=== PATIENT | male | born 1970 | race Hispanic/Latino ===

== ENCOUNTER 2019-01-04 06:23 | Inpatient (IN) | payer OTHER ==
[2019-01-04 06:28] VITALS: O2SAT 99
--- NOTE | 2019-01-04 06:42 | ED PDOC ---
Arrival/HPI - General Chief Complaint: Medical Clearance Time Seen by Provider: 01/04/19 06:32 Historian: Patient - History of Present Illness Narrative History of Present Illness (Text): 01/04/19 06:39 Patient to ED transfer from [facility] for psychiatric admission.Pt.with history of depression and suicidal ideation.Currently states that he feels fine.No somatic complaints.Patient was previously medically cleared. Past Medical History - Provider Review Nursing Documentation Reviewed: Yes - Infectious Disease Hx of Infectious Diseases: None - Cardiac Hx Cardiac Disorders: No - Pulmonary Hx Respiratory Disorders: No - Neurological Hx Neurological Disorder: No - HEENT Hx HEENT Disorder: No - Renal Hx Renal Disorder: No - Endocrine/Metabolic Hx Endocrine Disorders: No - Hematological/Oncological Hx Blood Disorders: No - Integumentary Hx Dermatological Disorder: No - Musculoskeletal/Rheumatological Hx Musculoskeletal Disorders: Yes Other/Comment: club foot - Gastrointestinal Hx Gastrointestinal Disorders: No - Genitourinary/Gynecological Hx Genitourinary Disorders: No - Psychiatric Hx Psychophysiologic Disorder: Yes Hx Depression: Yes Hx Substance Use: No - Surgical History Other/Comment: leg surgery - Anesthesia Hx Anesthesia: Yes Hx Anesthesia Reactions: No Family/Social History - Physician Review Nursing Documentation Reviewed: Yes Family/Social History: No Known Family HX Smoking Status: Never Smoked Hx Alcohol Use: No Hx Substance Use: No Review of Systems - Review of Systems Constitutional: Normal Eyes: Normal ENT: Normal Respiratory: Normal Cardiovascular: Normal Gastrointestinal: Normal Genitourinary Male: Normal Musculoskeletal: Normal Skin: Normal Neurological: Normal Endocrine: Normal Hemo/Lymphatic: Normal Psychiatric: Depression Physical Exam Vital Signs Temp Pulse Resp BP Pulse Ox 01/04/19 06:28 98.1 F 89 13 137/99 H 99 Temperature: Afebrile Blood Pressure: Normal Pulse: Regular Respiratory Rate: Normal Appearance: Positive for: Well-Appearing, Non-Toxic, Comfortable Pain Distress: None Mental Status: Positive for: Alert and Oriented X 3 - Systems Exam Head: Present: Atraumatic, Normocephalic Pupils: Present: PERRL Extroacular Muscles: Present: EOMI Conjunctiva: Present: Normal Mouth: Present: Moist Mucous Membranes Neck: Present: Normal Range of Motion Respiratory/Chest: Present: Clear to Auscultation, Good Air Exchange. No: Respiratory Distress, Accessory Muscle Use Cardiovascular: Present: Regular Rate and Rhythm, Normal S1, S2. No: Murmurs Abdomen: No: Tenderness, Distention, Peritoneal Signs Back: Present: Normal Inspection Upper Extremity: Present: Normal Inspection. No: Cyanosis, Edema Lower Extremity: Present: Normal Inspection. No: Edema Neurological: Present: GCS=15, CN II-XII Intact, Speech Normal, Motor Func Grossly Intact, Normal Sensory Function Skin: Present: Warm, Dry, Normal Color. No: Rashes Psychiatric: Present: Alert, Oriented x 3, Normal Insight, Normal Concentration Disposition/Present on Arrival - Present on Arrival Any Indicators Present on Arrival: No History of DVT/PE: No History of Uncontrolled Diabetes: No Urinary Catheter: No History of Decub. Ulcer: No History Surgical Site Infection Following: None - Disposition Have Diagnosis and Disposition been Completed?: Yes Diagnosis: Depression, Suicidal ideation Disposition: HOSPITALIZED Disposition Time: 06:43 Patient Plan: Admission Condition: STABLE
[2019-01-04] MEDS ORDERED: Alum-Mag Hydrox-Simethicone Susp (30 mL) PO PRN (08:28)
[2019-01-04] MEDS ORDERED: Magnesium Hydroxide Susp 30 ml UD PO PRN (08:28)
--- NOTE | 2019-01-04 10:52 | PCM.BM ---
<Lexx Rouse - Last Filed: 01/04/19 10:48> Treatment Plan Problems - Problems identified on initial assessmt Depression Date Initiated: 01/04/19 Time Initiated: 09:00 Assessment reference: NA Status: Active Priority: 1 Comment: suicidal ideation/hoplessness/helplessness Ineffective Coping skill Date Initiated: 01/04/19 Time Initiated: 08:00 Assessment reference: NA Status: Active Priority: 2 Comment: Inability to cope with living situation. Altered sleep pattern Date Initiated: 01/04/19 Time Initiated: 08:00 Assessment reference: NA Status: Active Priority: 3 Comment: Inabilty to sleep well at night time. Treatment assets and liabiliti Patient Assests: cooperative, insightful, ADL independent, negotiates basic needs Patient Liabilities: live alone, physical pain, financial problems, poor support system, medical problems - Milieu Protocol Maintain good personal hygiene: every shift Encourage regular showers, every shift Remind patient to perform daily oral care, every shift Assist patient to perform ADL's Conduct patient checks and document Observation sheet: Q15 minutes Maintain personal safety: every shift Educate patient to report safety concerns to staff, every shift Monitor environment for contraband/sharps Medication safety: Monitor for expected outcome, potential side effects: every shift, Assess barriers to learning: every shift, Assess readiness for medication education: every shift Discharge/Continuing Care - Education Needs Education Needs: Patient Medication, Patient Diagnosis/Disease Process, Patient Coping Skills, Patient Anger Management skills, Patient Placement options, Patient Community resources, Patient Activities of Daily Living, Patient Pain, Patient Nutrition, Patient Health Practices/Safety, Patient Personal Hygiene/Grooming, Patient Aftercare Safety Plan - Discharge Discharge Criteria: Tolerates medication w/o severe side effects, Free of Suicidal thoughts, Normal sleep pattern, Ability to care for self, Reduction of target symptoms <Melissa Mathews - Last Filed: 01/04/19 17:10> - Diagnosis (1) Depression Status: Acute Interventions: 01/04/19 17:10 Psychoeducation Psychopharmacology/adjustment of medications as needed/ monitoring possible side effects Evaluate pt on daily basis Compliance with medications and follow up appointments Suicide and homicide risk assessment and prevention Relapse prevention Reduction of symptoms Improve functional status Family involvement As outpatient: cognitive behavioral therapy <Marisa Cruz - Last Filed: 01/06/19 12:36> Family Contact Family involvement: Famliy/SO not involved
--- NOTE | 2019-01-04 17:10 | PCM.PSYCH ---
Initial Psychiatric Evaluation - Initial Psychiatric Evaluation Type of Admission: Voluntary Legal Status: Capacity Chief Complaint (in patient's own words): "[facility] SW said that I am the most nice depressed person, but my point it does not matter if I present well, I know that I am depressed and I have a lot of issues..." Patient's Reaction to Hospitalization: Patient was transferred from [facility] for evaluation of depressive symptoms and possible suicidal ideations. History of Present Illness and Precipitating Events: Shortly patient is a 48-year-old male self-reported history of de pression and anxiety for past 2 years, recent discharge from my [facility], h/o at least 2 suicidal attempts, patient was transferred from [facility], where he presented with depression, possible suicidal ideation. Patient was seen and examined today at the treatment team meeting, patient presented with good personal hygiene, good ADLs, discussed with treatment staff, transfer people are reviewed. 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 Patient reports his mother mother 2 years ago from a sudden heart attack and his father in 2016. Patient reports never suffering from depression until these past few years. Patient reports having an argument with his brother 3 months ago and haven't spoken to him since. Patient was making vague statements like "it becomes harder and harder to ask for help." Patient reports hx of suicidal ideation, no attempts, pt denied using drugs, denied smoking, denied alcohol consumption. Based on reports from [facility], patient was d/c from [facility] less than a week ago, prescription of Zoloft and Trazadone. which was not beneficial and "I had upset stomach", patient reports he was told by previous hospital that they did not have time to discuss all of issues, resulting in patient becoming upset. Patient reports he was told by the nurse at [facility] that he was "the most nice depressed person", pt said "it does not matter if I am smiling and sleep fine, I know that I am depressed". Patient reported that he had a panic attack last month. Patient denied being physically/sexually and emotionally abused. No manic symptoms elicited or reported. Patient currently homeless, patient has pension, patient agreed boarding home referral. Past psychiatric history: Patient reported to suicidal attempts, first on 2017 in which patient overdosed on pills and one month ago in which patient was going to jump in front of a train. Patient reports both incidents were "spontaneous." RECORD [facility] at [place] pt was d/c from the [facility] in [facility] pt verbalized thoughts of killing self with the plan to jump in front of the train. pt reported that he was d/c from psych unit in [facility] and he was not feeling well back then. pt has one Suicidal attempt summer 2017 by overdose on meds. 2years of depression which was getting worse for the past 1week in ED at [facility] pt said that he is "at the end of his rope", and "getting harder and harder to ask for help", pt was "considering" of harming self at the night of admission, but denied any intent. pt was diagnosed with MD opal heller, with no psychosis. pt was on Prozac, wellbutrin, zoloft. Labs reviewed. 01/03/19 K was 3.3 (L) range 3.5-5.1 CXR 01/03/19 no evidence of acute pulmonary disease. Home meds listed: bentyl 20mg po 4 times a dy oxycontin 40mg twice a day oxycodone 15mg q6hrs Patient reported that currently he is not taking any painkillers Family history: Patient denied Medical history: Chronic hip pain, patient had multiple surgeries for his keep because 1 of his leg was shorter than other Vital Signs Temp Pulse Resp BP Pulse Ox 01/04/19 16:00 90 131/69 01/04/19 08:00 16 01/04/19 06:28 98.1 F 89 13 137/99 H 99 The patient failed the outpatient lower level of care: Yes Current Medications: See HPI Present on Admission - Present on Admission Any Indicators Present on Admission: No History of DVT/PE: No History of Uncontrolled Diabetes: No Urinary Catheter: No Decubitus Ulcer Present: No Review of Systems - Review of Systems Systems not reviewed;Unavailable: Acuity of Condition - Constitutional Constitutional: As Per HPI - EENT Eyes: As Per HPI Ears: As Per HPI Nose/Mouth/Throat: As Per HPI - Cardiovascular Cardiovascular: As Per HPI - Respiratory Respiratory: As Per HPI - Gastrointestinal Gastrointestinal: As Per HPI - Genitourinary Genitourinary: As Per HPI - Reproductive: Male Reproductive:Male: As Per HPI - Musculoskeletal Musculoskeletal: As Per HPI - Integumentary Integumentary: As Per HPI - Neurological Neurological: As Per HPI - Psychiatric Psychiatric: As Per HPI - Endocrine Endocrine: As Per HPI - Hematologic/Lymphatic Hematologic: As Per HPI Past Patient History - Past Psychiatric History Previous Treatment History: Inpatient Prior Professional Help: See HPI Prior Psychiatric Treatment: See HPI At what hospital: See HPI Duration: See HPI Nature of Treatment: See HPI Explanation of prior treatment: See HPI - PSYCHIATRIC Hx Psychophysiologic Disorder: Yes Hx Depression: Yes Hx Substance Use: No - Infectious Disease Hx of Infectious Diseases: None - CARDIAC Hx Cardiac Disorders: No - PULMONARY Hx Respiratory Disorders: No - NEUROLOGICAL Hx Neurological Disorder: No - HEENT Hx HEENT Problems: No - RENAL Hx Chronic Kidney Disease: No - ENDOCRINE/METABOLIC Hx Endocrine Disorders: No - HEMATOLOGICAL/ONCOLOGICAL Hx Blood Disorders: No - INTEGUMENTARY Hx Dermatological Problems: No - MUSCULOSKELETAL/RHEUMATOLOGICAL Hx Musculoskeletal Disorders: Yes Other/Comment: club foot - GASTROINTESTINAL Hx Gastrointestinal Disorders: No - GENITOURINARY/GYNECOLOGICAL Hx Genitourinary Disorders: No - SURGICAL HISTORY Other/Comment: leg surgery - ANESTHESIA Hx Anesthesia: Yes Hx Anesthesia Reactions: No - Medical/Surgical History Reviewed & confirmed: by wv Meds Allergies/Adverse Reactions: Allergies Allergy/AdvReac Type Severity Reaction Status Date / Time No Known Allergies Allergy Verified 01/04/19 06:47 Mental Status Examination - Personal Presentation Personal Presentation: Looks stated age - Affect Affect: Constricted (But reactive and mood congruent) - Motor Activity Motor Activity: Calm - Reliability in Providing Information Reliability in Providing Information: Fair - Speech Speech: Organized - Formal Thought Process Formal Thought Process: Other (Circumstantial thought process) - Obsessions/Compulsions Obsessions: None Compulsions: None - Cognitive Functions Orientation: Person, Place, Situation Sensorium: Alert Estimate of Intelligence: Average Judgement: Intact, as evidence by: Insight regarding need for hospitalization - Risk Risk: Diminished functioning - Strength & Assets Inventory Strength & Assets Inventory: Cooperative, Other (Relatively good physical health, no psychosis, has income, no drugs involved) - Limitations Limitations: Other (Letter social issues, homelessness) Psychiatric Physical Exam - Physical Exam Reviewed and confirmed: Emergency Department Physical Exam Results - Vital Signs Recent Vital Signs: Last Vital Signs Temp 98.1 F 01/04/19 06:28 Pulse 89 01/04/19 06:28 Resp 13 01/04/19 06:28 BP 137/99 H 01/04/19 06:28 Pulse Ox 99 01/04/19 06:28 - EKG Data EKG Interpreted by: ER Physician DSM Plan - DSM 5 DSM 5 Diagnosis: Rule out major depressive disorder Rule out malingering Rule out dependent personality - Recommended/Plan of Treatment Treatment Recommendations and Plan of Treatment: Milieu/structure/supportive therapy SW consultation for discharge plan and social issues Med management Effexor 37.5 daily for depression anxiety Sonata 5 mg as needed for insomnia Family involvement Follow up on labs Will monitor closely Pt was educated about risk/benefits and alternatives of medications, coping strategies (safety plan, suicide prevention), relapse prevention, importance of follow up with psychiatrist and therapist, stay away from drugs/alcohol/smoking Projected ELOS: 7 days Prognosis: Fair Discharge Plan and Discharge Criteria: Patient will pose no imminent danger to self or others - Tobacco Cessation Tobacco Use Status for the last 30 days: Non User Tobacco Use Treatment Practical Counseling Provided: No Tobacco Use Treatment FDA-Approved Cessation Medication Provided: No - Alcohol or Substance Abuse Does the patient have an Alcohol or Substance Abuse Disorder: No Initial Psych Certification - Initial Certification I certify that the inpatient psychiatric facility admission was medically necessary for either: Treatment which could reasonbly be expected to improve pt's condition I estimate of hospitalization is necessary for proper treatment of the patient: 7 Unit of Time: Days My plans for post-hospital care for this patient are: Day treatment program
[2019-01-05 08:01] LABS: GLUCOSE,FASTING 99 mg/dL (65-110); HDL CHOLESTEROL 40 mg/dL (29-60)
[2019-01-05 08:13] LABS: LDL CHOLESTEROL 116 mg/dL (0-129)
[2019-01-05 09:05] LABS: FREE T4 0.95 ng/dL (0.78-2.19)
--- NOTE | 2019-01-05 16:50 | PCM.PYCHPN ---
Psychiatric Progress Note - Psychiatric Progress Note Patient seen today, length of contact: 30 minutes Patient Chief Complaint: "Finally, I slept...." Problems Identified/Issues Discussed: Risks/benefits/alternatives of medications, charge planning, suicide prevention, symptoms. Medical Problems: See HPI Diagnostic Results: Lab Results 01/05/19 08:20: Free T4 0.95, TSH 3rd Generation 1.65 01/05/19 07:40: RPR Nonreactive 01/05/19 07:40: Fasting Glucose 99, Triglycerides 110, Cholesterol 180, LDL Cholesterol Direct 116, HDL Cholesterol 40 Vital Signs Temp Pulse Resp BP Pulse Ox 01/05/19 16:00 96 H 127/83 01/05/19 06:35 98.2 F 92 H 16 117/79 01/04/19 16:00 90 131/69 01/04/19 08:00 16 01/04/19 06:28 98.1 F 89 13 137/99 H 99 DSM 5 Symptoms Update: Shortly patient is a 48-year-old male self-reported history of depression and anxiety for past 2 years, recent discharge from [facility], h/o at least 2 suicidal attempts, patient was transferred from [facility], where he presented with depression, possible suicidal ideation. Patient was seen and examined today next to the Nursing station, [facility] personal hygiene. Patient reported that finally he slept, patient reported that he tolerates Effe xor well, denied any upset stomach or diarrhea. Patient reported that she still feels "the same, depressed", patient started to go to groups, visible in the unit. As per staff patient is compliant with her medications, no aggression, no agitation. Impression: DSM 5 Diagnosis: Rule out major depressive disorder Rule out malingering Rule out dependent personality Medication Change: Yes (Effexor started) Medical Record Reviewed: Yes Consults ordered or reviewed: Patient was cleared by medical team in the emergency room. Mental Status Examination - Cognitive Function Orientation: Person, Place, Situation Memory: Intact Attention: Poor Concentration: Poor Association: WNL Fund of Knowledge: WNL - Mood Mood: Depressed - Affect Affect: Constricted (But reactive and mood congruent) - Formal Thought Process Formal Thought Process: Other (Circumstantial thought process) - Suicidal Ideation Suicidal Ideation: No - Homicidal Ideation Homicidal Ideation: No Goal/Treatment Plan - Goal/Treatment Plan Need for Continued Stay: Remain at risks for inpatient hospitalization, Severe depression anxiety, Discharge may exacerbated symptoms, Severe functional impairment Progress Toward Problem(s) and Goals/Treatment Plan: Milieu/structure/supportive therapy SW consultation for discharge plan and social issues Med management Effexor 37.5 daily for depression anxiety Sonata 5 mg as needed for insomnia Family involvement Follow up on labs Will monitor closely Pt was educated about risk/benefits and alternatives of medications, coping strategies (safety plan, suicide prevention), relapse prevention, importance of follow up with psychiatrist and therapist, stay away from drugs/alcohol/smoking Estimated Date of D/C: 01/11/19
--- NOTE | 2019-01-06 14:05 | PCM.PYCHPN ---
Psychiatric Progress Note - Psychiatric Progress Note Patient seen today, length of contact: 30 minutes Patient Chief Complaint: "Everybody has a tendency to address my homelessness, but I have a lot of other issues, I am not sleeping, I feel very depressed and hopeless" Problems Identified/Issues Discussed: Risks/benefits/alternatives of medications, charge planning, suicide prevention, symptoms. Medical Problems: See HPI Diagnostic Results: Lab Results 01/05/19 08:20: Free T4 0.95, TSH 3rd Generation 1.65 01/05/19 07:40: RPR Nonreactive 01/05/19 07:40: Fasting Glucose 99, Triglycerides 110, Cholesterol 180, LDL Cholesterol Direct 116, HDL Cholesterol 40 Vital Signs Temp Pulse Resp BP Pulse Ox 01/05/19 16:00 96 H 127/83 01/05/19 06:35 98.2 F 92 H 16 117/79 01/04/19 16:00 90 131/69 01/04/19 08:00 16 01/04/19 06:28 98.1 F 89 13 137/99 H 99 DSM 5 Symptoms Update: Shortly patient is a 48-year-old male self-reported history of depression and anxiety for past 2 years, recent discharge from [facility], h/o at least 2 suicidal attempts, patient was transferred from [facility], where he presented with depression, possible suicidal ideation. Patient was seen and examined today next treatment team meeting room together with manager social responsibility. Patient reported to be homeless, when manager social responsibility tried to help patient with referral to boarding homes, patient made statement such as people are addressing his homelessness and forget about his depression and anxiety. After explanation of the treatment plan patient seems to understand the importance of the discharge plan. Patient reported that "I have a lot of issues, I did not sleep, I feel depressed and hopeless" patient reports that he tolerates medications well, willing to increase the dose of Effexor, patient denied any side effects from that medication. Patient complaining of insomnia, Sonata was increased to 10 mg daily. So far patient tolerates medications well, no side effects observed or reported, aims 0, no EPS. Impression: DSM 5 Diagnosis: Rule out major depressive disorder Rule out malingering Rule out dependent personality Medication Change: Yes (Effexor increased, sonata increased) Medical Record Reviewed: Yes Consults ordered or reviewed: Patient was cleared by medical team in the emergency room. Mental Status Examination - Cognitive Function Orientation: Person, Place, Situation Memory: Intact Attention: Poor Concentration: Poor Association: WNL Fund of Knowledge: WNL - Mood Mood: Depressed - Affect Affect: Constricted - Formal Thought Process Formal Thought Process: Other (Circumstantial thought process) - Suicidal Ideation Suicidal Ideation: No - Homicidal Ideation Homicidal Ideation: No Goal/Treatment Plan - Goal/Treatment Plan Need for Continued Stay: Remain at risks for inpatient hospitalization, Severe depression anxiety, Discharge may exacerbated symptoms, Severe functional impairment Progress Toward Problem(s) and Goals/Treatment Plan: Milieu/structure/supportive therapy SW consultation for discharge plan and social issues Med management Effexor 75 daily for depression anxiety Sonata 10 mg as needed for insomnia Family involvement Follow up on labs Will monitor closely Pt was educated about risk/benefits and alternatives of medications, coping strategies (safety plan, suicide prevention), relapse prevention, importance of follow up with psychiatrist and therapist, stay away from drugs/alcohol/smoking Estimated Date of D/C: 01/11/19
[2019-01-07] MEDS ORDERED: guaiFENesin-DM 600-30 mg ER Tab PO STA (03:41)
--- NOTE | 2019-01-07 05:43 | CP.PCM.PN ---
Subjective - Date & Time of Evaluation Date of Evaluation: 01/07/19 Time of Evaluation: 05:42 - Subjective Subjective: 48 year old male was admitted for depressive symptoms. Has PMH of club foot,overweight. Objective - Vital Signs/Intake and Output Vital Signs (last 24 hours): Temp Pulse Resp BP Pulse Ox 97.9 F 68 20 129/82 99 01/06/19 07:18 01/06/19 16:00 01/06/19 07:18 01/06/19 16:00 01/04/19 06:28 - Medications Medications: Current Medications Acetaminophen (Tylenol 325mg Tab) 650 mg PO Q6H PRN PRN Reason: Pain, moderate (4-7) Al Hydrox/Mg Hydrox/Simethicone (Maalox Plus 30 Ml) 30 ml PO DAILY PRN PRN Reason: Indigestion / Heartburn Magnesium Hydroxide (Milk Of Magnesia) 30 ml PO DAILY PRN PRN Reason: Constipation Venlafaxine HCl (Effexor) 75 mg PO DAILY KAEL Zaleplon (Sonata) 10 mg PO HS PRN PRN Reason: Insomnia Last Admin: 01/06/19 22:00 Dose: 10 mg - Constitutional Appears: Well, No Acute Distress - Head Exam Head Exam: ATRAUMATIC, NORMAL INSPECTION, NORMOCEPHALIC - Eye Exam Eye Exam: Normal appearance - ENT Exam ENT Exam: Normal External Ear Exam - Neck Exam Neck Exam: Normal Inspection - Respiratory Exam Respiratory Exam: NORMAL BREATHING PATTERN. absent: Accessory Muscle Use, Rales, Rhonchi, Wheezes - Cardiovascular Exam Cardiovascular Exam: absent: JVD - GI/Abdominal Exam GI & Abdominal Exam: absent: Distended - Rectal Exam Rectal Exam: Deferred - Exam Additional comments: Deferred. - Extremities Exam Extremities Exam: Normal Inspection - Back Exam Back Exam: NORMAL INSPECTION - Neurological Exam Neurological Exam: Alert, Awake, Oriented x3 - Psychiatric Exam Psychiatric exam: Normal Affect - Skin Skin Exam: Normal Color Assessment and Plan - Assessment and Plan (Free Text) Assessment: Cough. Mucus plug in bronchus. Bronchitis Depression. Overweight. Post nasal drip. Plan: Guaifenesin as ordered. Continue management .
--- NOTE | 2019-01-07 11:39 | PCM.PYCHPN ---
Psychiatric Progress Note - Psychiatric Progress Note Patient seen today, length of contact: 30 minutes Patient Chief Complaint: "I did not sleep well last night, I still feel depressed, hopeless" Problems Identified/Issues Discussed: Risks/benefits/alternatives of medications, charge planning, suicide prevention, symptoms. Medical Problems: See HPI Diagnostic Results: Lab Results 01/05/19 08:20: Free T4 0.95, TSH 3rd Generation 1.65 01/05/19 07:40: RPR Nonreactive 01/05/19 07:40: Fasting Glucose 99, Triglycerides 110, Cholesterol 180, LDL Cholesterol Direct 116, HDL Cholesterol 40 Vital Signs Temp Pulse Resp BP Pulse Ox 01/05/19 16:00 96 H 127/83 01/05/19 06:35 98.2 F 92 H 16 117/79 01/04/19 16:00 90 131/69 01/04/19 08:00 16 01/04/19 06:28 98.1 F 89 13 137/99 H 99 DSM 5 Symptoms Update: Shortly patient is a 48-year-old male self-reported history of depression and anxiety for past 2 years, recent discharge from [facility], h/o at least 2 suicidal attempts, patient was transferred from [facility], where he presented with depression, possible suicidal ideation. Patient was seen and examined today next to nursing station, patient complaining of insomnia, patient reported no side effects from medication, patient seems to be hesitant to show any improvement, patient reported that overall she feels "little bit better", patient is waiting for interview by boarding home. Patient is not psychotic, does not present to be responding to internal stimuli. Patient reported that "I have a lot of issues, I did not sleep, I feel depressed and hopeless". Patient complaining of insomnia, Sonata was increased to 10 mg daily. So far patient tolerates medications well, no side effects observed or reported, aims 0, no EPS. Impression: DSM 5 Diagnosis: Rule out major depressive disorder Rule out dependent personality Medication Change: Yes (Sonata discontinued, Ambien started) Medical Record Reviewed: Yes Consults ordered or reviewed: Patient was cleared by medical team in the emergency room. Mental Status Examination - Cognitive Function Orientation: Person, Place, Situation Memory: Intact Attention: Poor Concentration: Poor Association: WNL Fund of Knowledge: WNL - Mood Mood: Depressed - Affect Affect: Constricted - Formal Thought Process Formal Thought Process: Other (Circumstantial thought process) - Suicidal Ideation Suicidal Ideation: No - Homicidal Ideation Homicidal Ideation: No Goal/Treatment Plan - Goal/Treatment Plan Need for Continued Stay: Remain at risks for inpatient hospitalization, Severe depression anxiety, Discharge may exacerbated symptoms, Severe functional impairment Progress Toward Problem(s) and Goals/Treatment Plan: Milieu/structure/supportive therapy SW consultation for discharge plan and social issues Med management Effexor 75 daily for depression anxiety Raoata мария Ambien 5 mg at the nighttime Family involvement Follow up on labs Will monitor closely Pt was educated about risk/benefits and alternatives of medications, coping strategies (safety plan, suicide prevention), relapse prevention, importance of follow up with psychiatrist and therapist, stay away from drugs/alcohol/smoking Estimated Date of D/C: 01/11/19
--- NOTE | 2019-01-07 13:09 | CP.PCM.CON ---
<Kevin Hutson - Last Filed: 01/07/19 15:02> History of Present Illness - History of Present Illness History of Present Illness: Kevin Hutson DO, PGY-1 Hospitalist Consult Note for Dr. Paige Cabello Reason for consult: cough, congestion HPI: Patient is a 48 year old male with PMH of L club foot (s/p multiple L foot surgeries) admitted to the psychiatry unit for management of depressive symptoms. For the past two weeks, he has noted increasing cough and congestion which he first attributed to a URI but has been persistent. He also admits to runny nose, post-nasal drip, but denies red or watery eyes or sore throat. He has no other complaints at this time and denies fever/chills, CP, SOB, abd pain/nausea/vomiting, ESPINAL, changes in vision, or urinary complaints. 12-point ROS was otherwise negative except as specified above. Past Medical History: L club foot Past Surgical History: multiple L foot surgeries Allergies: NKA Home medications: none Family History: mother recently from [place], also had HTN Social History: denies current tobacco, EtOH, or illicit drug use, has been under a lot of stress lately as he has recently lost his mother, father, and brother all recently, which has contributed to his current depression Past Patient History - Infectious Disease Hx of Infectious Diseases: None - Past Social History Smoking Status: Never Smoked - CARDIAC Hx Cardiac Disorders: No - PULMONARY Hx Respiratory Disorders: No - NEUROLOGICAL Hx Neurological Disorder: No - HEENT Hx HEENT Problems: No - RENAL Hx Chronic Kidney Disease: No - ENDOCRINE/METABOLIC Hx Endocrine Disorders: No - HEMATOLOGICAL/ONCOLOGICAL Hx Blood Disorders: No - INTEGUMENTARY Hx Dermatological Problems: No - MUSCULOSKELETAL/RHEUMATOLOGICAL Hx Musculoskeletal Disorders: Yes Other/Comment: club foot - GASTROINTESTINAL Hx Gastrointestinal Disorders: No - GENITOURINARY/GYNECOLOGICAL Hx Genitourinary Disorders: No - PSYCHIATRIC Hx Psychophysiologic Disorder: Yes Hx Depression: Yes Hx Substance Use: No - SURGICAL HISTORY Other/Comment: leg surgery - ANESTHESIA Hx Anesthesia: Yes Hx Anesthesia Reactions: No Meds Allergies/Adverse Reactions: Allergies Allergy/AdvReac Type Severity Reaction Status Date / Time No Known Allergies Allergy Verified 01/06/19 04:30 - Medications Medications: Current Medications Acetaminophen (Tylenol 325mg Tab) 650 mg PO Q6H PRN PRN Reason: Pain, moderate (4-7) Al Hydrox/Mg Hydrox/Simethicone (Maalox Plus 30 Ml) 30 ml PO DAILY PRN PRN Reason: Indigestion / Heartburn Magnesium Hydroxide (Milk Of Magnesia) 30 ml PO DAILY PRN PRN Reason: Constipation Venlafaxine HCl (Effexor) 75 mg PO DAILY [facility] Last Admin: 01/07/19 09:10 Dose: 75 mg Zolpidem Tartrate (Ambien) 5 mg PO HS PRN; Protocol PRN Reason: Insomnia Physical Exam - Constitutional Appears: Non-toxic, No Acute Distress - Head Exam Head Exam: ATRAUMATIC, NORMOCEPHALIC - Eye Exam Eye Exam: EOMI, PERRL - ENT Exam ENT Exam: Mucous Membranes Moist - Neck Exam Neck exam: Positive for: Full Rom. Negative for: Tenderness - Respiratory Exam Respiratory Exam: Clear to Auscultation Bilateral, NORMAL BREATHING PATTERN. absent: Accessory Muscle Use, Rales, Rhonchi, Wheezes, Respiratory Distress - Cardiovascular Exam Cardiovascular Exam: REGULAR RHYTHM, RRR, +S1, +S2. absent: Diastolic murmur, Gallop, Rubs, Systolic Murmur - GI/Abdominal Exam GI & Abdominal Exam: Normal Bowel Sounds, Soft. absent: Guarding, Rebound, Tenderness - Extremities Exam Extremities exam: Positive for: full ROM. Negative for: pedal edema - Back Exam Back exam: NORMAL INSPECTION - Neurological Exam Neurological exam: Alert, Oriented x3 - Skin Skin Exam: Dry, Intact, Warm Results - Vital Signs Recent Vital Signs: Last Vital Signs Temp 98.0 F 01/07/19 07:21 Pulse 91 H 01/07/19 07:21 Resp 20 01/07/19 07:21 BP 112/73 01/07/19 07:21 Pulse Ox 99 01/04/19 06:28 Assessment & Plan - Assessment and Plan (Free Text) Assessment: 48 yo M with PMH of L club foot (s/p multiple L foot surgeries) admitted to psychiatric unit for management of depressive symptoms and suicidal ideation. Medicine consult is requested for persistent cough, congestion for the past two weeks. Plan: Cough/Congestion Suspect these are most likely 2/2 seasonal allergies Recommend continuing with robitussin PRN, mucinex Will add daily claritin, flonase Low suspicion for infectious etiology of cough/congestion CXR negative Thank you for allowing us to participate in the care of Mr. Ramirez. Please re- consult as needed. Patient seen, examined with, and plan discussed with my attending Dr. Paige Hutson D.O. IM Resident PGY-1 <Nori Cabello R - Last Filed: 01/07/19 15:34> Meds - Medications Medications: Current Medications Acetaminophen (Tylenol 325mg Tab) 650 mg PO Q6H PRN PRN Reason: Pain, moderate (4-7) Al Hydrox/Mg Hydrox/Simethicone (Maalox Plus 30 Ml) 30 ml PO DAILY PRN PRN Reason: Indigestion / Heartburn Fluticasone Propionate (Flonase) 1 actuation NS DAILY [facility] Stop: 01/12/19 14:16 Guaifenesin (Mucinex La) 600 mg PO BID [facility] Stop: 01/12/19 16:01 Loratadine (Claritin) 10 mg PO DAILY [facility] Stop: 01/12/19 14:16 Magnesium Hydroxide (Milk Of Magnesia) 30 ml PO DAILY PRN PRN Reason: Constipation Venlafaxine HCl (Effexor) 75 mg PO DAILY [facility] Last Admin: 01/07/19 09:10 Dose: 75 mg Zolpidem Tartrate (Ambien) 5 mg PO HS PRN; Protocol PRN Reason: Insomnia Results - Vital Signs Recent Vital Signs: Last Vital Signs Temp 98.0 F 01/07/19 07:21 Pulse 91 H 01/07/19 07:21 Resp 20 01/07/19 07:21 BP 112/73 01/07/19 07:21 Pulse Ox 99 01/04/19 06:28 Attending/Attestation - Attestation I have personally seen and examined this patient.: Yes I have fully participated in the care of the patient.: Yes I have reviewed all pertinent clinical information: Yes Notes (Text): Patient seen and examined by me with resident at approximately 8:15AM on 01/07/19 in the emergency room. Case including HPI, physical exam, and assessment and plan discussed with resident. Agree with above with following additions/corrections. Patient is a 48-year-old male with past medical history significant for left clubfoot and multiple left foot surgeries and depression that presented to the emergency room with worsening depression. Patient states that he has been having worsening of depression over the past 2 years secondary to problems with family. Patient was transferred from [facility] for evaluation of depressive symptoms and possible suicidal ideations. Medical team consulted for cough. Patient states that for approximately one week he has been having a cough which seems to be worse at night. He states he also feels a drip at the back of his throat. He states he has not had allergies in the past but feels it may be allergies. No associated fevers or chills. Patient states he nose feels a "little congested in the morning." No rhinorrhea. Patient states he tried mucinex last night which did seem to help. He denies any chest pain or shortness of breath. No headaches or dizziness. No nausea, vomiting, or abdominal pain. No dysuria. No diarrhea or constipation. 12 point review of systems reviewed by me. Please see above HPI. All other systems negative. Physical exam: General: Awake and alert sitting up in chair in no acute distress. HEENT: Normocephalic, atraumatic. Extraocular muscles intact. Pupils equal and reactive, no scleral icterus. Oropharynx is pink and moist. No pharyngeal erythema or exudate appreciated. Neck is supple. No post nasal drip noted. Cardiovascular: Regular rhythm. Normal S1 and S2. No murmurs, rubs, or gallops appreciated Pulmonary: Normal respiratory effort. No rhonchi, rales, or wheezing appreciated. Gastrointestinal: Soft, nondistended. Nontender. Positive bowel sounds all 4 quadrants. No guarding. Musculoskeletal: Moves all extremities. No calf tenderness. No edema appr eciated. Central nervous system: AAO x3. CN2-12 grossly intact. Dermatologic: Skin warm and dry. Assessment and plan: Patient is a 48-year-old male with past medical history significant for left clubfoot and multiple left foot surgeries and depression that presented to the emergency room with worsening depression. Medical team consulted for cough. 1. Post nasal drip. Cough. Possible allergies. Placed on flonase, mucinex, and claritan. Afebrile. No signs of infection. 2. Depression. Possible suicidal ideations. Care as per primary team. Case was discussed in detail with the patient regarding current diagnosis and treatment plan. All questions answered. Thank you for allowing us to participate in the care of your patient. We will sign off. Please reconsult at any timed if needed.
--- NOTE | 2019-01-07 13:17 | RAD ---
Date of service: 01/07/2019 PROCEDURE: CHEST RADIOGRAPH, 1 VIEW HISTORY: coughing, productive x 2 weeks COMPARISON: None available. FINDINGS: LUNGS: Clear. PLEURA: No pneumothorax or pleural fluid seen. CARDIOVASCULAR: No aortic atherosclerotic calcification present. Normal. OSSEOUS STRUCTURES: No significant abnormalities. VISUALIZED UPPER ABDOMEN: Normal. OTHER FINDINGS: None. IMPRESSION: No active disease.
[2019-01-07] MEDS: Fluticasone Nasal 50 mcg/Spray NS SCH (15:47)
[2019-01-07] MEDS: guaiFENesin 600 mg ER Tab PO SCH (15:54)
[2019-01-08] MEDS: Fluticasone Nasal 50 mcg/Spray NS SCH (08:43)
[2019-01-08] MEDS: guaiFENesin 600 mg ER Tab PO SCH ×2 (08:43→17:31)
--- NOTE | 2019-01-08 15:55 | PCM.PYCHPN ---
Psychiatric Progress Note - Psychiatric Progress Note Patient seen today, length of contact: 30 minutes Patient Chief Complaint: "I finally slept well" Problems Identified/Issues Discussed: Risks/benefits/alternatives of medications, charge planning, suicide prevention, symptoms. Medical Problems: See HPI Diagnostic Results: Lab Results 01/05/19 08:20: Free T4 0.95, TSH 3rd Generation 1.65 01/05/19 07:40: RPR Nonreactive 01/05/19 07:40: Fasting Glucose 99, Triglycerides 110, Cholesterol 180, LDL Cholesterol Direct 116, HDL Cholesterol 40 Vital Signs Temp Pulse Resp BP Pulse Ox 01/05/19 16:00 96 H 127/83 01/05/19 06:35 98.2 F 92 H 16 117/79 01/04/19 16:00 90 131/69 01/04/19 08:00 16 01/04/19 06:28 98.1 F 89 13 137/99 H 99 DSM 5 Symptoms Update: Shortly patient is a 48-year-old male self-reported history of depression and anxiety for past 2 years, recent discharge from [facility], h/o at least 2 suicidal attempts, patient was transferred from [facility], where he presented with depression, possible suicidal ideation. Patient was seen and examined today at the day treatment area, patient reported that he slept well, patient reported no side effects from medication, patient seems to be hesitant to show any improvement, patient reported that overall she feels "little bit better", patient is waiting for interview by boarding home on Friday. Patient is not psychotic, does not present to be responding to internal stimuli. Patient reported that "I have a lot of issues, but they feel little bit better." So far patient tolerates medications well, no side effects observed or reported, aims 0, no EPS. Impression: DSM 5 Diagnosis: Rule out major depressive disorder Rule out dependent personality Medication Change: Yes (Effexor increased) Medical Record Reviewed: Yes Consults ordered or reviewed: Patient was seen by medical team for sore throat and congestion. Consult appreciated. Mental Status Examination - Cognitive Function Orientation: Person, Place, Situation Memory: Intact Attention: Poor Concentration: Poor Association: WNL Fund of Knowledge: WNL - Mood Mood: Depressed - Affect Affect: Constricted - Formal Thought Process Formal Thought Process: Other (Circumstantial thought process) - Suicidal Ideation Suicidal Ideation: No - Homicidal Ideation Homicidal Ideation: No Goal/Treatment Plan - Goal/Treatment Plan Need for Continued Stay: Remain at risks for inpatient hospitalization, Severe depression anxiety, Discharge may exacerbated symptoms, Severe functional impairment Progress Toward Problem(s) and Goals/Treatment Plan: Milieu/structure/supportive therapy SW consultation for discharge plan and social issues Med management Effexor standard release 150 mg daily for depression and anxiety Ambien 5 mg at the nighttime Family involvement Follow up on labs Will monitor closely Pt was educated about risk/benefits and alternatives of medications, coping strategies (safety plan, suicide prevention), relapse prevention, importance of follow up with psychiatrist and therapist, stay away from drugs/alcohol/smoking Patient will be interviewed for boarding home acceptance Estimated Date of D/C: 01/11/19
[2019-01-09] MEDS: Venlafaxine 75 mg ER Cap PO SCH (08:55)
[2019-01-09] MEDS: guaiFENesin 600 mg ER Tab PO SCH ×2 (08:55→15:30)
[2019-01-09] MEDS: Fluticasone Nasal 50 mcg/Spray NS SCH (08:55)
--- NOTE | 2019-01-09 11:38 | PCM.PYCHPN ---
Psychiatric Progress Note - Psychiatric Progress Note Patient seen today, length of contact: 30 minutes Problems Identified/Issues Discussed: I reviewed assessment and recent notes. Patient was interviewed at bedside. Grooming and focus are fair. He is alert and well-oriented x3. Indicates he is depressed and anxious. Sleep was restless. Complains of cough that's been bothering him approximately 10 days otherwise he denies any new concerns or discomfort. There were no behavioral issues overnight. Diagnostic Results: Rule out major depressive disorder Rule out dependent personality Medication Change: Yes (ambien sudheerd) Medical Record Reviewed: Yes Mental Status Examination - Cognitive Function Orientation: Person, Place, Situation Memory: Intact Attention: Poor Concentration: Poor Association: WNL Fund of Knowledge: WNL - Mood Mood: Depressed - Affect Affect: Constricted - Formal Thought Process Formal Thought Process: Other (Circumstantial thought process) - Suicidal Ideation Suicidal Ideation: No - Homicidal Ideation Homicidal Ideation: No Goal/Treatment Plan - Goal/Treatment Plan Need for Continued Stay: Remain at risks for inpatient hospitalization, Severe depression anxiety, Discharge may exacerbated symptoms, Severe functional impairment Progress Toward Problem(s) and Goals/Treatment Plan: * c/w current tx and plan * Ambien increased to 10 mg po HS prn: for restless sleep on 01/09/19 * No new weekend lab results noted thus far * Vitals reviewed and noted below: Selected Entries 01/08/19 01/08/19 07:00 16:37 Temperature 97.9 F Pulse Rate 81 108 H Respiratory 16 Rate Blood Pressure 129/80 143/88 Estimated Date of D/C: 01/11/19
[2019-01-10] MEDS: Fluticasone Nasal 50 mcg/Spray NS SCH (09:14)
[2019-01-10] MEDS: Venlafaxine 75 mg ER Cap PO SCH (09:14)
[2019-01-10] MEDS: guaiFENesin 600 mg ER Tab PO SCH ×2 (09:15→15:39)
--- NOTE | 2019-01-10 10:05 | PCM.PYCHPN ---
Psychiatric Progress Note - Psychiatric Progress Note Patient seen today, length of contact: 30 minutes Problems Identified/Issues Discussed: I reviewed recent notes and met with patient at bedside. Grooming and focus are fair. He remembers me from my introduction yesterday. Remains alert and well- oriented x3. Feels that he is getting better but had a difficult night last night. His roommate woke him up by showering at 3 am and patient also had a bad dream which he didn't want to discuss. Overall he remains depressed and anxious. He presents as a little preoccupied but related without evidence of perceptual disturbance. There were no behavioral issues overnight. Diagnostic Results: Rule out major depressive disorder Rule out dependent personality Medication Change: Yes (ambien increased) Medical Record Reviewed: Yes Mental Status Examination - Cognitive Function Orientation: Person, Place, Situation Memory: Intact Attention: WNL Concentration: Poor Association: WNL Fund of Knowledge: WNL - Mood Mood: Depressed - Affect Affect: Constricted - Formal Thought Process Formal Thought Process: Other (Circumstantial thought process) - Suicidal Ideation Suicidal Ideation: No - Homicidal Ideation Homicidal Ideation: No Goal/Treatment Plan - Goal/Treatment Plan Need for Continued Stay: Remain at risks for inpatient hospitalization, Severe depression anxiety, Discharge may exacerbated symptoms, Severe functional impairment Progress Toward Problem(s) and Goals/Treatment Plan: * c/w current tx and plan * Ambien increased to 10 mg po HS prn: for restless sleep on 01/09/19 * No new weekend lab results noted * Vitals reviewed and noted below: Selected Entries 01/08/19 01/08/19 01/09/19 07:00 16:37 16:17 Temperature 97.9 F Pulse Rate 81 108 H 103 H Respiratory 16 Rate Blood Pressure 129/80 143/88 146/88 Estimated Date of D/C: 01/11/19
[2019-01-11] MEDS: Venlafaxine 75 mg ER Cap PO SCH (08:19)
[2019-01-11] MEDS: guaiFENesin 600 mg ER Tab PO SCH ×2 (08:20→17:48)
[2019-01-11] MEDS: Fluticasone Nasal 50 mcg/Spray NS SCH (08:20)
--- NOTE | 2019-01-11 11:57 | PCM.BM ---
<AnthonyMarisa Y - Last Filed: 01/11/19 11:57> Treatment Plan Problems - Problems identified on initial assessmt Depression Date Initiated: 01/04/19 Time Initiated: 09:00 Assessment reference: NA Status: Active Priority: 1 Comment: suicidal ideation/hoplessness/helplessness Ineffective Coping skill Date Initiated: 01/04/19 Time Initiated: 08:00 Assessment reference: NA Status: Active Priority: 2 Comment: Inability to cope with living situation. Altered sleep pattern Date Initiated: 01/04/19 Time Initiated: 08:00 Assessment reference: NA Status: Active Priority: 3 Comment: Inabilty to sleep well at night time. Treatment assets and liabiliti Patient Assests: cooperative, insightful, ADL independent, negotiates basic needs Patient Liabilities: live alone, physical pain, financial problems, poor support system, medical problems - Milieu Protocol Maintain good personal hygiene: every shift Encourage regular showers, every shift Remind patient to perform daily oral care, every shift Assist patient to perform ADL's Conduct patient checks and document Observation sheet: Q15 minutes Maintain personal safety: every shift Educate patient to report safety concerns to staff, every shift Monitor environment for contraband/sharps Medication safety: Monitor for expected outcome, potential side effects: every shift, Assess barriers to learning: every shift, Assess readiness for medication education: every shift Milieu Narrative: * c/w current tx and plan * Ambien increased to 10 mg po HS prn: for restless sleep on 01/09/19 * No new weekend lab results noted * Vitals reviewed and noted below: Selected Entries 01/08/19 01/08/19 01/09/19 07:00 16:37 16:17 Temperature 97.9 F Pulse Rate 81 108 H 103 H Respiratory 16 Rate Blood Pressure 129/80 143/88 146/88 Family Contact Family involvement: Famliy/SO not involved - Goals for Treatment Patient goals for treatment: "I need to work out my issues." Discharge/Continuing Care - Education Needs Education Needs: Patient Medication, Patient Diagnosis/Disease Process, Patient Coping Skills, Patient Anger Management skills, Patient Placement options, Patient Community resources, Patient Activities of Daily Living, Patient Pain, Patient Nutrition, Patient Health Practices/Safety, Patient Personal Hygiene/Gr ooming, Patient Aftercare Safety Plan - Discharge Discharge Criteria: Tolerates medication w/o severe side effects, Free of Suicidal thoughts, Normal sleep pattern, Ability to care for self, Reduction of target symptoms - Treatment Team Participation Patient/Family/SO Statement: * c/w current tx and plan * Ambien increased to 10 mg po HS prn: for restless sleep on 01/09/19 * No new weekend lab results noted * Vitals reviewed and noted below: Selected Entries 01/08/19 01/08/19 01/09/19 07:00 16:37 16:17 Temperature 97.9 F Pulse Rate 81 108 H 103 H Respiratory 16 Rate Blood Pressure 129/80 143/88 146/88 Treatment Plan Review - Problem Depression Time Initiated: 09:00 Ineffective Coping skill Time Initiated: 08:00 Altered sleep pattern Time Initiated: 08:00 <Melissa Mathews - Last Filed: 01/13/19 15:15> - Diagnosis (1) Depression Status: Acute Interventions: 01/11/19 15:59 Depression is improving, patient denied thoughts of harming himself or others, complained of double vision on Effexor, will decrease. interview for boarding home acceptance January 12, 2019
--- NOTE | 2019-01-11 16:04 | PCM.PYCHPN ---
Psychiatric Progress Note - Psychiatric Progress Note Patient seen today, length of contact: 30 minutes Patient Chief Complaint: "I had very vivid dream, I do not want to disclose what it is about" Problems Identified/Issues Discussed: Risks/benefits/alternatives of medications, charge planning, suicide prevention, symptoms. Medical Problems: See HPI Diagnostic Results: Lab Results 01/05/19 08:20: Free T4 0.95, TSH 3rd Generation 1.65 01/05/19 07:40: RPR Nonreactive 01/05/19 07:40: Fasting Glucose 99, Triglycerides 110, Cholesterol 180, LDL Cholesterol Direct 116, HDL Cholesterol 40 Vital Signs Temp Pulse Resp BP Pulse Ox 01/05/19 16:00 96 H 127/83 01/05/19 06:35 98.2 F 92 H 16 117/79 01/04/19 16:00 90 131/69 01/04/19 08:00 16 01/04/19 06:28 98.1 F 89 13 137/99 H 99 DSM 5 Symptoms Update: Shortly patient is a 48-year-old male self-reported history of depression and anxiety for past 2 years, recent discharge from [facility], h/o at least 2 suicidal attempts, patient was transferred from [facility], where he presented with depression, possible suicidal ideation. Patient was seen and examined today at the treatment team meeting room, patient reported that over the weekend he had "vivid dreams", patient complained of insomnia, mild irritability. Patient reported that he had double vision/blurry vision on increased dose of Effexor, this freelance copywriter suggested to decrease dose, patient agreed. patient is waiting for interview by boarding home initially was scheduled for today, but it was rescheduled for tomorrow. Patient is not psychotic, does not present to be responding to internal stimuli. Patient reported that "I have a lot of issues, but I feel little bit better." So far patient tolerates medications well, no side effects observed or reported, aims 0, no EPS. Impression: DSM 5 Diagnosis: Rule out major depressive disorder Rule out dependent personality Medication Change: Yes (Effexor decreased) Medical Record Reviewed: Yes Consults ordered or reviewed: Patient was seen by medical team for sore throat and congestion. Consult appreciated. Mental Status Examination - Cognitive Function Orientation: Person, Place, Situation Memory: Intact Attention: WNL Concentration: Poor Association: WNL Fund of Knowledge: WNL - Mood Mood: Depressed (" I feel little better") - Affect Affect: Constricted - Formal Thought Process Formal Thought Process: Other (Circumstantial thought process) - Suicidal Ideation Suicidal Ideation: No - Homicidal Ideation Homicidal Ideation: No Goal/Treatment Plan - Goal/Treatment Plan Need for Continued Stay: Remain at risks for inpatient hospitalization, Severe depression anxiety, Discharge may exacerbated symptoms, Severe functional impairment Progress Toward Problem(s) and Goals/Treatment Plan: Milieu/structure/supportive therapy SW consultation for discharge plan and social issues Med management Effexor 75 mg +37.5 mg mg daily for depression and anxiety Ambien 10 mg at the nighttime Family involvement Follow up on labs Will monitor closely Pt was educated about risk/benefits and alternatives of medications, coping strategies (safety plan, suicide prevention), relapse prevention, importance of follow up with psychiatrist and therapist, stay away from drugs/alcohol/smoking Patient will be interviewed for boarding home acceptance Estimated Date of D/C: 01/13/19
[2019-01-12] MEDS: Venlafaxine 75 mg ER Cap PO SCH (09:21)
[2019-01-12] MEDS: guaiFENesin 600 mg ER Tab PO SCH ×2 (09:21→17:26)
[2019-01-12] MEDS: Fluticasone Nasal 50 mcg/Spray NS SCH (09:22)
[2019-01-12] MEDS: Venlafaxine 37.5 mg ER Cap PO SCH (09:22)
--- NOTE | 2019-01-12 14:01 | PCM.PYCHPN ---
Psychiatric Progress Note - Psychiatric Progress Note Patient seen today, length of contact: 30 minutes Patient Chief Complaint: "I still have a blurry vision..." Problems Identified/Issues Discussed: Risks/benefits/alternatives of medications, charge planning, suicide prevention, symptoms. Medical Problems: See HPI Diagnostic Results: Lab Results 01/05/19 08:20: Free T4 0.95, TSH 3rd Generation 1.65 01/05/19 07:40: RPR Nonreactive 01/05/19 07:40: Fasting Glucose 99, Triglycerides 110, Cholesterol 180, LDL Cholesterol Direct 116, HDL Cholesterol 40 Vital Signs Temp Pulse Resp BP Pulse Ox 01/05/19 16:00 96 H 127/83 01/05/19 06:35 98.2 F 92 H 16 117/79 01/04/19 16:00 90 131/69 01/04/19 08:00 16 01/04/19 06:28 98.1 F 89 13 137/99 H 99 DSM 5 Symptoms Update: Shortly patient is a 48-year-old male self-reported history of depression and anxiety for past 2 years, recent discharge from [facility], h/o at least 2 suicidal attempts, patient was transferred from [facility], where he presented with depression, possible suicidal ideation. Patient was seen and examined today next to the nursing station, pt is anxious about the interview which was scheduled with for acceptance to a [facility]. pt reported that he still has blurry/double vision, but it is not getting worse. Dose of Effexor was decreased yesterday. Patient complained of insomnia, mild irritability. Patient is not psychotic, does not present to be responding to internal stimuli. Patient reported that "I have a lot of issues, but I feel little bit better." So far patient tolerates medications well, no side effects observed or reported, aims 0, no EPS. Impression: DSM 5 Diagnosis: Rule out major depressive disorder Rule out dependent personality Medication Change: Yes (Effexor decreased) Medical Record Reviewed: Yes Consults ordered or reviewed: Patient was seen by medical team for sore throat and congestion. Consult appreciated. Mental Status Examination - Cognitive Function Orientation: Person, Place, Situation Memory: Intact Attention: WNL Concentration: Poor (Some improvement) Association: WNL Fund of Knowledge: WNL - Mood Mood: Depressed (" I feel little better") - Affect Affect: Constricted (But more reactive mood congruent) - Speech Speech: Appropriate - Formal Thought Process Formal Thought Process: No Impairment - Suicidal Ideation Suicidal Ideation: No - Homicidal Ideation Homicidal Ideation: No Goal/Treatment Plan - Goal/Treatment Plan Need for Continued Stay: Remain at risks for inpatient hospitalization, Severe depression anxiety, Discharge may exacerbated symptoms, Severe functional impairment Progress Toward Problem(s) and Goals/Treatment Plan: Milieu/structure/supportive therapy SW consultation for discharge plan and social issues Med management Effexor 75 mg +37.5 mg mg daily for depression and anxiety Ambien 10 mg at the nighttime Family involvement Follow up on labs Will monitor closely Pt was educated about risk/benefits and alternatives of medications, coping strategies (safety plan, suicide prevention), relapse prevention, importance of follow up with psychiatrist and therapist, stay away from drugs/alcohol/smoking Patient will be interviewed for boarding home acceptance 12/13/18 Estimated Date of D/C: 01/13/19
[2019-01-13] MEDS: Venlafaxine 37.5 mg ER Cap PO SCH (08:37)
[2019-01-13] MEDS: Venlafaxine 75 mg ER Cap PO SCH (08:38)
--- NOTE | 2019-01-13 15:19 | PCM.PYCHPN ---
Psychiatric Progress Note - Psychiatric Progress Note Patient seen today, length of contact: 30 minutes Patient Chief Complaint: "blurry vision is improving.." Problems Identified/Issues Discussed: Risks/benefits/alternatives of medications, charge planning, suicide prevention, symptoms. Medical Problems: See HPI Diagnostic Results: Lab Results 01/05/19 08:20: Free T4 0.95, TSH 3rd Generation 1.65 01/05/19 07:40: RPR Nonreactive 01/05/19 07:40: Fasting Glucose 99, Triglycerides 110, Cholesterol 180, LDL Cholesterol Direct 116, HDL Cholesterol 40 Vital Signs Temp Pulse Resp BP Pulse Ox 01/05/19 16:00 96 H 127/83 01/05/19 06:35 98.2 F 92 H 16 117/79 01/04/19 16:00 90 131/69 01/04/19 08:00 16 01/04/19 06:28 98.1 F 89 13 137/99 H 99 DSM 5 Symptoms Update: Shortly patient is a 48-year-old male self-reported history of depression and anxiety for past 2 years, recent discharge from [facility], h/o at least 2 suicidal attempts, patient was transferred from [facility], where he presented with depression, possible suicidal ideation. Patient was seen and examined today at the treatment team room, pt was interviewed by boarding home, but was not accepted because pt is "high functioning", pt has no money, has no friends, no relatives. no other option other than to refer pt to [facility]. blurry/double vision slowly improving, not getting worse. Patient complained of insomnia, mild irritability. Patient sleeps better. Patient reported that "I have a lot of issues, but I feel little bit better." So far patient tolerates medications well, no side effects observed or reported, aims 0, no EPS. Impression: DSM 5 Diagnosis: Rule out major depressive disorder Rule out dependent personality Medication Change: No Medical Record Reviewed: Yes Consults ordered or reviewed: Patient was seen by medical team for sore throat and congestion. Consult appreciated. Mental Status Examination - Cognitive Function Orientation: Person, Place, Situation Memory: Intact Attention: WNL Concentration: Poor (Some improvement) Association: WNL Fund of Knowledge: WNL - Mood Mood: Depressed (" I feel little better") - Affect Affect: Constricted (But more reactive mood congruent) - Speech Speech: Appropriate - Formal Thought Process Formal Thought Process: No Impairment - Suicidal Ideation Suicidal Ideation: No - Homicidal Ideation Homicidal Ideation: No Goal/Treatment Plan - Goal/Treatment Plan Need for Continued Stay: Remain at risks for inpatient hospitalization, Severe depression anxiety, Discharge may exacerbated symptoms, Severe functional impairment Progress Toward Problem(s) and Goals/Treatment Plan: Milieu/structure/supportive therapy SW consultation for discharge plan and social issues Med management Effexor 75 mg +37.5 mg mg daily for depression and anxiety Ambien 10 mg at the nighttime Family involvement Follow up on labs Will monitor closely Pt was educated about risk/benefits and alternatives of medications, coping strategies (safety plan, suicide prevention), relapse prevention, importance of follow up with psychiatrist and therapist, stay away from drugs/alcohol/smoking Patient will be interviewed for boarding home acceptance 12/13/18, was not acce pted d/c planning Estimated Date of D/C: 01/15/19
[2019-01-14 07:32] VITALS: RESP 20; TEMP 97.7
[2019-01-14] MEDS: Venlafaxine 75 mg ER Cap PO SCH (09:06)
[2019-01-14] MEDS: Venlafaxine 37.5 mg ER Cap PO SCH (09:07)
--- NOTE | 2019-01-14 15:00 | PCM.PYCHPN ---
Psychiatric Progress Note - Psychiatric Progress Note Patient seen today, length of contact: 30 minutes Patient Chief Complaint: "blurry vision is improving, depression is getting better, but I feel numb.." Problems Identified/Issues Discussed: Risks/benefits/alternatives of medications, charge planning, suicide prevention, symptoms. Medical Problems: See HPI Diagnostic Results: Lab Results 01/05/19 08:20: Free T4 0.95, TSH 3rd Generation 1.65 01/05/19 07:40: RPR Nonreactive 01/05/19 07:40: Fasting Glucose 99, Triglycerides 110, Cholesterol 180, LDL Cholesterol Direct 116, HDL Cholesterol 40 Vital Signs Temp Pulse Resp BP Pulse Ox 01/05/19 16:00 96 H 127/83 01/05/19 06:35 98.2 F 92 H 16 117/79 01/04/19 16:00 90 131/69 01/04/19 08:00 16 01/04/19 06:28 98.1 F 89 13 137/99 H 99 Temp Pulse Resp BP Pulse Ox 97.7 F 87 20 148/94 H 99 01/14/19 07:31 01/14/19 07:31 01/14/19 07:31 01/13/19 15:00 01/04/19 06:28 DSM 5 Symptoms Update: Shortly patient is a 48-year-old male self-reported history of depression and anxiety for past 2 years, recent discharge from [facility], h/o at least 2 suicidal attempts, patient was transferred from [facility], where he presented with depression, possible suicidal ideation. Patient was seen and examined today at the treatment team room with SW, pt was interviewed by boarding home, but was not accepted because pt is "high functioning", pt said "I am in kind of weird situation now...", pt said that he will call to one of his friends to ask if he could stay there, will let SW know. In regard to both mood, patient said "my mood is improving, blurry vision, same time I have no other emotions." Patient reported to be "emotionally numb", patient is not psychotic, patient is not anxious, resented well. Patient reported to have good night sleep, fair appetite. As per staff patient is visible in the unit, attends all groups, no psychosis, no agitation, no aggression. So far patient tolerates medications well, no side effects observed or reported, aims 0, no EPS. Impression: DSM 5 Diagnosis: Rule out major depressive disorder Rule out dependent personality Medication Change: No Medical Record Reviewed: Yes Consults ordered or reviewed: Patient was seen by medical team for sore throat and congestion. Consult appreciated. Mental Status Examination - Cognitive Function Orientation: Person, Place, Situation Memory: Intact Attention: WNL Concentration: Poor (Improvement) Association: WNL Fund of Knowledge: WNL - Mood Mood: Depressed (" I feel better") - Affect Affect: Constricted (But more reactive mood congruent) - Speech Speech: Appropriate - Formal Thought Process Formal Thought Process: No Impairment - Suicidal Ideation Suicidal Ideation: No - Homicidal Ideation Homicidal Ideation: No Goal/Treatment Plan - Goal/Treatment Plan Need for Continued Stay: Remain at risks for inpatient hospitalization, Severe depression anxiety, Discharge may exacerbated symptoms, Severe functional impairment Progress Toward Problem(s) and Goals/Treatment Plan: Milieu/structure/supportive therapy SW consultation for discharge plan and social issues Med management Effexor 75 mg +37.5 mg mg daily for depression and anxiety Ambien 10 mg at the nighttime Family involvement Follow up on labs Will monitor closely Pt was educated about risk/benefits and alternatives of medications, coping strategies (safety plan, suicide prevention), relapse prevention, importance of follow up with psychiatrist and therapist, stay away from drugs/alcohol/smoking Patient will be interviewed for boarding home acceptance 12/13/18, was not accepted d/c planning Estimated Date of D/C: 01/15/19
[2019-01-14 16:03] VITALS: BP 131/87; PULSE 96
[2019-01-15] MEDS: Venlafaxine 37.5 mg ER Cap PO SCH (08:29)
[2019-01-15] MEDS: Venlafaxine 75 mg ER Cap PO SCH (08:29)
--- NOTE | 2019-01-15 15:24 | PCM.PYCHDC ---
Mental Status Examination - Mental Status Examination Orientation: Person, Place, Situation, Time Memory: Intact Mood: Neutral Affect: Constricted (but reactive, mood congruent) Speech: Appropriate Attention: WNL Concentration: WNL Association: WNL Fund of Knowledge: WNL Description of patient's judgement and insight: Pt has improved insight into mental and medical illness, pt was compliant with medications and unit rules and regulations, pt was attending group therapy sessions, was calm, cooperative, socially appropriate, no behavioral incidents, no agitation, no aggression. Psychotic Thoughts and Behaviors: Pt denied v/a/t hallucinations, denied paranoid ideations, pt does not appear to be psychotic, and thought process is goal directed. Suicidal Ideation: No Current Homicidal Ideation?: No Plan: pt adamantly denied thoughts of harming self or others denied intent or plan. Discharge Plan - Discharge Note Reason for Hospitalization: Patient was transferred from [facility] for evaluation of depressive symptoms and possible suicidal ideations. Psychiatric History (includes Medical, Family, Personal Hx): See HPI Laboratory Data: Lab Results 01/05/19 08:20: Free T4 0.95, TSH 3rd Generation 1.65 01/05/19 07:40: RPR Nonreactive 01/05/19 07:40: Fasting Glucose 99, Triglycerides 110, Cholesterol 180, LDL Cholesterol Direct 116, HDL Cholesterol 40 Vital Signs Temp Pulse Resp BP Pulse Ox 01/14/19 16:02 96 H 131/87 01/14/19 07:31 97.7 F 87 20 01/13/19 15:00 99 H 18 148/94 H 01/13/19 07:13 97.9 F 86 20 126/79 01/12/19 16:06 116 H 141/90 01/12/19 07:25 98.0 F 91 H 20 144/93 H 01/11/19 15:51 118 H 148/87 01/11/19 07:00 98.1 F 85 20 123/81 01/10/19 16:01 103 H 133/89 01/09/19 16:17 103 H 146/88 01/08/19 16:37 108 H 143/88 01/08/19 07:00 97.9 F 81 16 129/80 01/07/19 16:00 98 H 133/84 01/07/19 07:21 98.0 F 91 H 20 112/73 01/06/19 16:00 68 129/82 01/06/19 07:18 97.9 F 96 H 20 116/74 01/05/19 16:00 96 H 127/83 01/05/19 06:35 98.2 F 92 H 16 117/79 01/04/19 16:00 90 131/69 01/04/19 08:00 16 01/04/19 06:28 98.1 F 89 13 137/99 H 99 Consultations:: List each consultation separately and include: 1. Reason for request. 2. Findings. 3. Follow-up Consultations: Patient was seen by medical team for sore throat and congestion. Consult appreciated. Summary of Hospital Course include:: 1. Description of specific treatment plan utilized for patients during their course of treatmen. 2. Summarize the time- course for resolution of acute symptoms and/or regressed behaviors. 3. Describe issues identified and worked on during hospitalization. 4. Describe medication utilized. 5. Describe medical problems identified and treated. 6. Reassessment of suicide risk Summary of Hospital Course: Shortly patient is a 48-year-old male self-reported history of depression and anxiety for past 2 years, recent discharge from [facility], h/o at least 2 suicidal attempts, patient was transferred from [facility], where he presented with depression, possible suicidal ideation. please see initial note for more detailed information. pt was stabilized on the following medications: effexor was initiated and titrated to 150mg daily, but pt c/o blurry vision, dose was decreased to 75mg +37.5mg daily, blurry vision improved pt was started on sonata, but it was not effective, ambien was started 5mg hs, and it was effective. Patient tolerated medications well, no side effects observed or reported, aims 0, no EPS. Patient improved significantly, depression improved, patient had good appetite and sleep, patient was attending all groups, was calm/cooperative, socially appropriate. Patient was interviewed by the court crier of the boarding home, patient was found to be highly functioning, was not accepted. At present moment discharge plan is patient will stay with his friends, patient will follow-up with outpatient psychiatrist. Patient reached maximum effect from this acute psychiatric hospitalization, deemed not in any imminent danger to self or others, will be discharged today. Patient will be following up at mental health clinic, information about follow up appointment, time and address provided to the pt, (see SW note for more detailed information). It is a patient responsibility to follow up with outpatient clinic, PMD as well as specialists In case patient will need to obtain results of studies pending at discharge, patient was provided with contact information of Psychiatric Inpatient unit [phone] as well as Medical Record Department [phone], [phone]. Patient denied smoking, denies alcohol consumption, denied using drugs. pt was provided with prescriptions see medication reconciliation form Pt was educated about safety plan in case of worsening of symptoms or in case of suicidal or homicidal ideation call 911 or go to the nearest ER, also was educated to take meds as prescribed and stay away from drugs, pt verbalized understanding. Vital Signs Temp Pulse Resp BP Pulse Ox 01/04/19 16:00 90 131/69 01/04/19 08:00 16 01/04/19 06:28 98.1 F 89 13 137/99 H 99 - Diagnosis (1) Depression Current Visit: Yes Status: Chronic Priority: High - Final Diagnosis (DSM 5) Condition upon Discharge: STABLE Disposition: HOME/ ROUTINE Follow-up Treatment Plan: Patient will be following up at mental health clinic, information about follow up appointment, time and address provided to the pt, (see SW note for more detailed information). It is a patient responsibility to follow up with outpatient clinic, PMD as well as specialists In case patient will need to obtain results of studies pending at discharge, patient was provided with contact information of Psychiatric Inpatient unit [phone] as well as Medical Record Department [phone], as well as [facility] [phone]. Patient denied smoking, denies alcohol consumption, denied using drugs. pt was provided with prescriptions see medication reconciliation form Pt was educated about safety plan in case of worsening of symptoms or in case of suicidal or homicidal ideation call 911 or go to the nearest ER, also was educated to take meds as prescribed and stay away from drugs, pt verbalized understanding. Prescriptions/Medication Reconciliation: Venlafaxine [Effexor XR] 37.5 mg PO DAILY #14 cer Venlafaxine [Effexor XR] 75 mg PO DAILY #14 cer Zolpidem [Ambien] 10 mg PO HS PRN #14 tab PRN Reason: Insomnia - Tobacco Cessation Tobacco Use Treatment Practical Counseling Provided: No Reason for not providing: Patient denied smoking Tobacco Use Treatment FDA-Approved Cessation Medication Provided: No Smoking Cessation Prescription was given: No If no, reason for not providing: Denies smoking - Alcohol or Substance Abuse Does the patient have an Alcohol or Substance Abuse Disorder: No A prescription for an FDA-approved medication for alcohol and drug dependence was given to the patient at discharge: No If no,reason for not providing: Denied using alcohol - Antipsychotic Medications Pt discharged on 2 or more routine antipsychotic medications: No
== END 2019-01-15 16:13 | disposition home or self-care (01) | DRG 754 ==
LOC: ED 06:23 → ERH 06:43 → PSYC 07:14
PROVIDERS: ADMIT Psychiatry & Neurology Psychiatry; ATTEND Psychiatry & Neurology Psychiatry
DX: F32.9 Major depressive disorder, single episode, unspecified (principal); F41.8 Other specified anxiety disorders; R45.851 Suicidal ideations; T17.590A Other foreign object in bronchus causing asphyxiation, initial encounter; H53.2 Diplopia; J40 Bronchitis, not specified as acute or chronic; R09.82 Postnasal drip; E66.3 Overweight; Z68.30 Body mass index [BMI] 30.0-30.9, adult; Z59.0 Homelessness; Z82.49 Family history of ischemic heart disease and other diseases of the circulatory system